=== PATIENT | female | born 1985 | race Caucasian/White ===

== ENCOUNTER 2020-06-28 06:19 | Day surgery (SDC) | payer OTHER, SELFPAY ==
[~2020-06-28] VITALS: Ht 154.9 cm; Wt 110.5 kg
[~2020-06-28 06:19] MED LIST: AMOX500; AMOX500 PO; CEPH500 PO; CLIN300 PO; CYCL10 PO; FLUOXETINE; GUAI600T33 PO; GUAPSEER PO; HYDACE5 PO; IBUP200; IBUP600 PO; Norco 5-325 Ta1 EACH PO; OLANZAPINE; ONDA4 PO; ONDA4ODT MM; OXYACE5T PO; PHENA200 PO; PROCODE120 PO; PROM25 PO; Phentermine HCl30 MG PO; RISP1 PO; RXONDA4ODT MM; SULTRIDS PO; TOPI25 PO; TRAZ50 PO; Veetids 500500 MG PO
--- NOTE | 2020-06-28 08:17 | NUR ---
06/28/20 0817 CHEYANNE DAUGHERTY PT TO STEPDOWN VIA BED. VSS ON ROOM AIR. PT DENIES PAIN OR NAUSEA, REPORTS TINGLING TO BILATERAL HANDS/WRISTS. IV DC'D. PT UP TO RELCINER WITH SBA. PT TOLERATING PO INTAKE. ENGAGED IN DC TEACHING AND ALL QUESTIONS ASKED AND ANSWERED. PT ASSISTED IN DRESSING AND AMB TO AWAITING FAMILY.
== END 2020-06-28 08:12 | disposition home or self-care (01) ==
LOC: ORSCSDS 06:19
PROVIDERS: Orthopaedic Surgery
PROC: 01N50ZZ Release Median Nerve, Open Approach (ICD-10-PCS; principal; 2020-06-28 07:30)
DX: G56.03 Carpal tunnel syndrome, bilateral upper limbs (principal); F17.210 Nicotine dependence, cigarettes, uncomplicated; E66.01 Morbid (severe) obesity due to excess calories; Z68.42 Body mass index [BMI] 45.0-49.9, adult
CPT/HCPCS: 82947; J2250; J2704; J3010; J7120

== ENCOUNTER 2022-05-17 09:11 | Day surgery (SDC) | payer OTHER ==
[~2022-05-17] VITALS: Ht 154.9 cm; Wt 114.6 kg
[~2022-05-17 09:11] MED LIST changes: +B-COMPLEX WITH1 EAC2 PO; +THERA-D2000 UNIT PO
--- NOTE | 2022-05-17 10:13 | NUR ---
[facility] in [facility] warming gown applied. History, Chart, Medications and Allergies reviewed before start of procedure.Lungs clear T/O to Auscultation. Patient confirms NPO status and agrees with scheduled surgery. Pre-Op teaching done. Pt verbalizes understanding. Patient States Post-Procedure ride home has been arranged.
--- NOTE | 2022-05-17 11:20 | NUR ---
05/17/22 1120 Faustino Breen ANESTHESIA PER DR. GARCIA SEE ANESTHESIA RECORD
--- NOTE | 2022-05-17 12:07 | NUR ---
Discharge instructions reviewed with patient. Patient verbalizes understanding. Copy given to patient to take home. Patient States Post-Procedure ride home has been arranged. Discharged via wheelchair to private car for ride home. pleasant denies any complaint at bedside getting dressed with no problem
== END 2022-05-17 12:15 | disposition home or self-care (01) ==
LOC: ORSCMMR 09:11 → ORD 11:00 → ORSCMMR 12:15
PROVIDERS: Internal Medicine Gastroenterology
PROC: 0DB98ZX Excision of Duodenum, Via Natural or Artificial Opening Endoscopic, Diagnostic (ICD-10-PCS; principal; 2022-05-17 11:00)
PROC: 0DB68ZX Excision of Stomach, Via Natural or Artificial Opening Endoscopic, Diagnostic (ICD-10-PCS; principal; 2022-05-17 11:00)
PROC: 0DB48ZX Excision of Esophagogastric Junction, Via Natural or Artificial Opening Endoscopic, Diagnostic (ICD-10-PCS; principal; 2022-05-17 11:00)
DX: Z01.818 Encounter for other preprocedural examination (principal); K21.9 Gastro-esophageal reflux disease without esophagitis; E66.01 Morbid (severe) obesity due to excess calories; Z68.42 Body mass index [BMI] 45.0-49.9, adult
CPT/HCPCS: A9270; J2704; J7120

== ENCOUNTER 2023-03-19 22:00 | Emergency (ER) | payer OTHER ==
[~2023-03-19] VITALS: Ht 154.9 cm; Wt 86.2 kg
[2023-03-19 22:37] LABS: Hematocrit 37.1 % (33.0-51.0); Mean Corpuscular HGB 29.1 pg (26.0-34.0); Mean Corpuscular Volume 83 fL (80-100); Mean Platelet Volume 10.3 fL (9.1-12.4); Platelet Count 337 K/mm3 (150-400); RDW Coefficient Variation 14.1 % (11.7-14.2); RDW Standard Deviation 42.5 fL (35.1-46.3); Red Blood Cell Count 4.46 M/mm3 (3.80-5.20); White Blood Cell Count 12.45 K/mm3 (4.00-11.30)
[2023-03-19 22:58] LABS: Albumin, Blood 3.5 g/dL (3.4-5.0); Albumin/Globulin Ratio 0.9 (0.8-1.8); Bilirubin, Total 0.2 mg/dL (0.1-1.0); Bun/Creatinine Ratio 32.8 (12.0-20.0); Calcium, Blood 9.1 mg/dL (8.5-10.1); Creatinine, Blood 0.52 mg/dL (0.40-1.00); Globulin, Blood 3.9 g/dL (2.2-4.0); Potassium, Blood 3.9 mmol/L (3.5-5.5); Total Protein, Blood 7.4 g/dL (6.4-8.2)
[2023-03-19] MEDS ORDERED: [UNRECOGNIZED DRUG - CODE] PO (23:05)
[2023-03-19] MEDS ORDERED: AMITRIPTYLINE H25 MG PO (23:05)
[2023-03-19 23:29] LABS: BAND PERCENT MAN 1 % (0-8); BASOPHILS PERCENT MAN 0 % (0-2); EOSINOPHILS ABSOLUTE MAN 0.37 K/mm3 (0.00-0.68); EOSINOPHILS PERCENT MAN 3 % (0-6); LYMPHOCYTES % ATYPICAL MANUAL 1 % (0-0); LYMPHOCYTES ABSOLUTE MAN 4.48 K/mm3 (0.84-5.20); LYMPHOCYTES PERCENT MAN 35 % (21-46); MONOCYTES ABSOLUTE MAN 0.37 K/mm3 (0.16-1.47); MONOCYTES PERCENT MAN 3 % (4-13); NEUTROPHILS ABSOLUTE MAN 7.22 K/mm3 (1.96-9.15); SEG NEUTROPHILS PERCENT MAN 57 % (41-73); TOTAL CELLS COUNTED 100
[2023-03-20 00:30] VITALS: BP 115/74
[2023-03-20] MEDS ORDERED: ALMACONE SUSPE355 ML PO (00:32)
== END 2023-03-20 00:43 | disposition home or self-care (01) ==
LOC: ER 22:00
PROVIDERS: Student in an Organized Health Care Education/Training Program
DX: R07.2 Precordial pain (principal); F31.9 Bipolar disorder, unspecified; F17.200 Nicotine dependence, unspecified, uncomplicated; Z88.8 Allergy status to other drugs, medicaments and biological substances; Z79.899 Other long term (current) drug therapy; Z98.84 Bariatric surgery status
CPT/HCPCS: 71046; 80053; 84484; 85025; 93005; 93010; 99285-25; A9270

== ENCOUNTER 2023-11-02 20:29 | Emergency (ER) | payer OTHER ==
[~2023-11-02] VITALS: Ht 152.4 cm; Wt 79.4 kg
[~2023-11-02 20:29] MED LIST changes: +ALMACONE SUSPE355 ML PO; +AMITRIPTYLINE H25 MG PO; +[UNRECOGNIZED DRUG - CODE] PO
[2023-11-02] MEDS ORDERED: Tetracaine HCl/Pf 0.5% Opth Soln 4 ml RIGHTEYE ONE (21:00)
[2023-11-02] MEDS ORDERED: Fluorescein Sod 1MG Opth Strips RIGHTEYE ONE ×2 (21:00→22:40)
[2023-11-02 22:24] VITALS: BP 129/90
[2023-11-02] MEDS ORDERED: Fluorescein Sod 1MG Opth Strips BOTHEYES ONE (23:10)
[2023-11-02] MEDS ORDERED: Erythromycin 0.5% Opth Oint 1 gm RIGHTEYE ONE (23:20)
[2023-11-02] MEDS ORDERED: Ofloxacin 0.3% Opth Soln 5 ML RIGHTEYE ONE (23:20)
[2023-11-02] MEDS ORDERED: OCUFLOX510 RIGHTEYE (23:23)
[2023-11-02] MEDS ORDERED: ERYT1OIN RIGHTEYE (23:23)
== END 2023-11-02 23:26 | disposition home or self-care (01) ==
LOC: ER 20:29
DX: H10.9 Unspecified conjunctivitis (principal); Z88.8 Allergy status to other drugs, medicaments and biological substances; Z79.899 Other long term (current) drug therapy; F17.290 Nicotine dependence, other tobacco product, uncomplicated
CPT/HCPCS: A9270

== ENCOUNTER 2024-11-09 12:31 | Emergency (ER) | payer OTHER ==
[~2024-11-09] VITALS: Ht 154.9 cm; Wt 63.5 kg
[~2024-11-09 12:31] MED LIST changes: +ERYT1OIN RIGHTEYE; +OCUFLOX510 RIGHTEYE
[2024-11-09 13:18] VITALS: BP 130/80
== END 2024-11-09 13:26 | disposition left against medical advice (07) ==
LOC: ER 12:31
DX: R10.11 Right upper quadrant pain (principal); Z98.84 Bariatric surgery status; F17.290 Nicotine dependence, other tobacco product, uncomplicated; Z53.29 Procedure and treatment not carried out because of patient's decision for other reasons; Z88.8 Allergy status to other drugs, medicaments and biological substances; Z91.018 Allergy to other foods; Z79.899 Other long term (current) drug therapy
CPT/HCPCS: 99283

== ENCOUNTER → 2024-12-07 | Outpatient (CLI) | payer OTHER ==
[2024-12-07 16:50] LABS: C DIFFICILE DNA POSITIVE (Negative)
[2024-12-09 11:42] LABS: CALPROTECTIN,FECAL 39 ug/g (<=49)
[2024-12-11 08:28] LABS: OVA AND PARASITE,FECAL INTERP Negative (Negative)
== END | disposition home or self-care (01) ==
LOC: LAB SHORT 13:56 → LAB 13:56 → LAB FUT 11-10 10:40 → EDSTATUS 11-10 10:40
PROVIDERS: Family Medicine
DX: K52.9 Noninfective gastroenteritis and colitis, unspecified (principal)
CPT/HCPCS: 83993; 87015; 87045; 87046; 87177; 87205; 87209; 87324; 87338; 87493; 87899